=== PATIENT | male | born 1940 | race Caucasian/White ===

== ENCOUNTER 2020-04-22 13:38 | Emergency (ER) | payer MEDICARE, SELFPAY ==
--- NOTE | ~2020-04-22 | XR_ITS ---
EXAMINATION: XR finger 4th LT min 2V EXAM DATE: 04/22/2020 14:20 INDICATION: finger vs router, left 4th finger trauma. TECHNIQUE: Left 4th finger frontal, lateral and oblique projections obtained and reviewed. There i s no prior study for comparison. FINDINGS: Acute open posttraumatic comminuted fracture left 1st distal phalanx, with partial amputat ion. Multiple bone fragments. No metallic foreign bodies, but soft tissue is obscured by the soft tis makenna bandage. Large laceration. IMPRESSION: Open comminuted left 4th distal phalangeal fractures, laceration. Reviewed, dictated and finalized at location B. E[facility] [employer]
[2020-04-22 13:45] VITALS: BP 118/68; PULSE 73; RESP 20; TEMP 36.1; O2SAT 99
--- NOTE | 2020-04-22 14:25 | ED.UPPEXIN ---
HPI - Extremity Injury (Upper) General Chief Complaint: Extremity Injury, Upper Stated Complaint: finger amputation Time Seen by Provider: 04/22/20 14:13 Source: patient Mode of arrival: ambulatory Limitations: no limitations History of Present Illness HPI narrative: Patient is an 79-year-old male complaining of injuring his ring finger of his left hand, cut of the tip of my finger after getting caught in rowder . Denies any other pain or injury. Related Data Allergies Allergy/AdvReac Type Severity Reaction Status Date / Time No Known Allergies Allergy Verified 10/09/11 22:30 Review of Systems Review of Systems: All systems reviewed & are unremarkable except as noted in HPI and below Constitutional: Constitutional: Denies body ache(s), Denies chills, Denies excessive sweating, Denies fatigue, Denies fever(s), Denies headache(s), Denies lethargy, Denies malaise, Denies weakness and Denies weight loss Eyes: Eyes: Denies blurry vision, Denies change in vision and Denies loss of vision ENT: Denies dizziness, Denies ear discharge, Denies headache(s), Denies lip swelling, Denies epistaxis, Denies nasal congestion, Denies neck pain, Denies throat swelling and Denies tongue swelling Cardiovascular: Cardiovascular: Denies chest pain, Denies chest pain at rest, Denies chest pain with activity, Denies diaphoresis, Denies rapid heart rate, Denies edema, Denies irregular heart rhythm, Denies lightheadedness, Denies palpitations, Denies dyspnea and Denies dyspnea on exertion Respiratory: Respiratory: Denies chest congestion, Denies cough, Denies hemoptysis, Denies dyspnea and Denies dyspnea on exertion Gastrointestinal: Gastrointestinal: Denies abdominal pain, Denies melena, Denies hematochezia, Denies diarrhea, Denies nausea, Denies vomiting and Denies hematemesis Musculoskeletal: Musculoskeletal: Denies abnormal gait, Denies neck pain and Denies numbness Comments: Distal finger tip amputation 4th digit left hand, neurovasc intact Neurologic: Denies Abnormal speech present, Denies abnormal gait, Denies confusion, Denies dizziness, Denies headache(s), Denies focal weakness, Denies loss of vision, Denies numbness, Denies Other visual disturbances, Denies Sensory deficit (Neuro) and Denies weakness Psychiatric: Psychiatric: Denies confusion, Denies depression, Denies auditory hallucinations, Denies homicidal ideation and Denies suicidal ideation Endocrine: Endocrine: Denies cold intolerance, Denies excessive sweating, Denies fatigue, Denies heat intolerance and Denies palpitations Hematologic/Lymphatic: Hematologic/Lymphatic: Denies easy bleeding and Denies easy bruising Allergic/Immunologic: Allergic/Immunologic: Denies lip swelling, Denies throat swelling and Denies tongue swelling Course Vital Signs Vital signs: Vital Signs Temperature 36.1 C L 04/22/20 13:45 Pulse Rate 73 04/22/20 13:45 Respiratory Rate 20 04/22/20 13:45 Blood Pressure 118/68 04/22/20 13:45 Pulse Oximetry 99 04/22/20 13:45 Temperature 36.1 C L 04/22/20 13:45 Pulse Rate 73 04/22/20 13:45 Respiratory Rate 20 04/22/20 13:45 Blood Pressure 118/68 04/22/20 13:45 Pulse Oximetry 99 04/22/20 13:45 MDM - Extremity Injury (Upper) MDM Narrative Medical decision making narrative: Reviewed the x-ray of her finger, she has an open comminuted left distal distal phalanx fracture, fourth digit. Discussed the case with Dr. Cox, states that he will take the patient to the OR around 6 PM. Differential Diagnosis Differential diagnosis: Likely other (Fracture, dislocation, strain, sprain) Lab Data Result diagrams: 04/22/20 15:23 04/22/20 15:23 Labs: Lab Results 04/22/20 04/22/20 04/22/20 Range/Units 15:23 15:23 15:23 WBC 8.2 (4.5-10.0) K/mm3 RBC 5.04 (4.6-6.20) M/mm3 Hgb 16.0 (14.0-18.0) g/dL Hct 47.5 (42.0-52.0) % MCV 94.2 (80-100) fl MCH 31.7 (26-34) pg MCHC 33.7 (32-36) g
[2020-04-22 15:30] LABS: Basophils Percent Auto 0.4 % (0.2-1.2); Eosinophils Absolute Auto 0.1 K/mm3 (0-0.3); Eosinophils Percent Auto 1.1 % (0-4.4); Hematocrit 47.5 % (42.0-52.0); Immature Granulocyte Absolute 0.02 K/mm3 (0.00-0.031); Immature Granulocyte Percent A 0.2 % (0-0.5); Lymphocytes Absolute Auto 2.32 K/mm3 (0.9-3.2); Lymphocytes Percent Auto 28.2 % (18.3-44.2); Mean Corpuscular HGB Conc 33.7 g/dl (32-36); Mean Corpuscular Hemoglobin 31.7 pg (26-34); Mean Corpuscular Volume 94.2 fl (80-100); Mean Platelet Volume 11.5 fl (7.4-10.4); Monocytes Absolute Auto 0.8 K/mm3 (0.1-0.6); Monocytes Percent Auto 9.1 % (2.6-8.5); Platelet Count Result 160 k/mm3 (150-375); Red Blood Count 5.04 M/mm3 (4.6-6.20); Red Cell Distribution Width 13.3 % (11.5-14.5); White Blood Count 8.2 K/mm3 (4.5-10.0)
[2020-04-22 15:39] LABS: Prothrombin Time 13.3 Seconds (11.1-14.7)
[2020-04-22 15:40] LABS: Partial Thromboplastin Time 25.7 SECONDS (22.3-36.8)
[2020-04-22 15:41] LABS: Anion Gap 7 mmol/L (8-16); Blood Urea Nitrogen 29 mg/dL (9-20); Calcium 9.1 mg/dL (8.4-10.2); Carbon Dioxide 28 mmol/L (22-30); Chloride 104 mmol/L (98-107); Estimated CRCL calculation 48 ml/min; Estimated Glomerular Filt Rate > 60; Glucose 106 mg/dL (75-110); Potassium 4.1 mmol/L (3.4-5.0); Sodium 139 mmol/L (137-145)
[2020-04-22] MEDS: HYDROmorphone HCL INJ (*CRX) 1 MG/ML SYR 0.5 MG IV PUSH (16:19)
[2020-04-22] MEDS: TETANUS,DIPHTHERIA,AC PERTUSSIS ADULT (0.5 ML) BOOSTRIX IM (17:19)
--- NOTE | 2020-04-22 18:20 | PC.NURSE ---
dr rodriguez at bedside for digital block
--- NOTE | 2020-04-22 19:35 | PM.PROC ---
Procedure Note - Detailed Date of procedure: 04/22/20 Pre-op diagnosis: finger amputation Post-op diagnosis: same Procedure performed: Revision of amputation of the left ring finger in the distal phalanx Description of procedure: Mr. Koch is 79 he is here with his . About 2:00 a.m. in the afternoon he sustained a significant injury to the distal phalanx of his left ring finger while using a rubber . AD lives in [facility] and was transported here for treatment of this. He is waited in the ER for my attention. I have reviewed his x-rays which show preservation of the distal interphalangeal joint with about 7 mm of retained metaphysis. This gentleman's healthy, he has no allergies to medications, he takes a blood pressure medicine and cholesterol medicine i believe and nothing else. He was working at his home when this injury occurred. In the ER today he has received a Tdap and some IV Ancef and some Dilaudid. The digit was blocked with 1% lidocaine with epinephrine. It was meticulously cleaned with the sterile solution provided by the ER. A green tourniquet was placed at the base of the finger. The entire nail plate and nail bed were already gone except for part of the nail fold. The palmar flap was largely intact with some shredding to 1 side. bone fragments were removed from the wound and the metaphysis was shaped with a rongeur were to provide a satisfactory stump. The flexor and extensor tendons remained attached. The flap margins were trimmed appropriately and the palmar flap was brought to the dorsal skin and sutured. The flap was tailored as needed to provide a rounded and. All suturing was done with 4-0 nylon. The tourniquet was released and a sterile bandage applied. He is discharged home with a prescription for cephalexin and hydrocodone. Follow up will be on 04-28-20. Surgeon: Davey Cox MD
--- NOTE | 2020-04-22 19:50 | PC.NURSE ---
dr. rodriguez contacted ed requesting to see pt in office tomorrow. pt contacted per cell phone.
== END 2020-04-22 19:45 | disposition home or self-care (01) ==
PROVIDERS: Emergency Provider Emergency Medicine; PCP Internal Medicine
DX: S62.635B Displaced fracture of distal phalanx of left ring finger, initial encounter for open fracture (principal); Z23 Encounter for immunization; W31.2XXA Contact with powered woodworking and forming machines, initial encounter
CPT/HCPCS: 13131; 36415; 73140; 80048; 85025; 85610; 85730; 90471; 90715; 96365; 96375; 99284; J0690; J1170

== ENCOUNTER 2023-12-25 14:43 | Emergency (ER) | payer MEDICARE, SELFPAY ==
--- NOTE | ~2023-12-25 | XR_ITS ---
XR chest 2V Ordering provider: Nathan Montano MD History: 83 years Male with . weakness . Comparison: None. FINDINGS: MEDIASTINUM: The cardiac silhouette is slightly enlarged. LUNGS: No pneumothorax. Minimal opacification the left lung base is seen which may indicate atelectas is. Minimal effusion is not excluded. OTHER: No free air under the diaphragm. Degenerative changes of the spine. IMPRESSION: Minimal opacification the left lung base suggestive of atelectasis. Minimal effusion is not excluded. Clinical correlation and follow-up advised. Reviewed, dictated and finalized at location A. IMPRESSION: Minimal opacification the left lung base suggestive of atelectasis. Minimal eff usion is not excluded. Clinical correlation and follow-up advised.
[2023-12-25 14:49] VITALS: BP 116/93; PULSE 91; RESP 24; TEMP 36.5; O2SAT 97
--- NOTE | 2023-12-25 14:55 | ECG_ITS ---
Test Date: 2023-12-25 15:00:25 Measurements Intervals [place] Rate: 93 P: 1 IN: 184 QRS: -61 QRSD: 104 T: 55 QT: 338 QTc: 422 Interpretive Statements SINUS RHYTHM LEFT ANTERIOR FASCICULAR BLOCK BASELINE ARTIFACT- I, II, III, AVR, AVL, AVF, V1-V2 ABNORMAL ECG No previous ECG available for comparison Electronically Signed On 12-25-2023 15:27:12 CDT by Arnie Brown D.O.
[2023-12-25 15:16] LABS: Basophils Percent Auto 0.3 % (0.2-1.2); Eosinophils Percent Auto 0.2 % (0-4.4); Hematocrit 47.9 % (42.0-52.0); Immature Granulocyte Absolute 0.03 K/mm3 (0.00-0.031); Immature Granulocyte Percent A 0.3 % (0-0.5); Lymphocytes Absolute Auto 2.67 K/mm3 (0.9-3.2); Lymphocytes Percent Auto 22.7 % (18.3-44.2); Mean Corpuscular HGB Conc 33.4 g/dl (32-36); Mean Corpuscular Hemoglobin 32.2 pg (26-34); Mean Corpuscular Volume 96.4 fl (80-100); Mean Platelet Volume 11.8 fl (7.4-10.4); Monocytes Absolute Auto 1.3 K/mm3 (0.1-0.6); Monocytes Percent Auto 11.4 % (2.6-8.5); Neutrophils Absolute Auto 7.7 K/mm3 (1.3-6.7); Neutrophils Percent Auto 65.1 % (45.5-73.1); Platelet Count Result 147 k/mm3 (150-375); Red Blood Count 4.97 M/mm3 (4.6-6.20); Red Cell Distribution Width 13.2 % (11.5-14.5); White Blood Count 11.8 K/mm3 (4.5-10.0)
[2023-12-25 15:24] LABS: Alanine Aminotransferase 38 U/L (6-50); Albumin Level 4.3 g/dL (3.5-5.1); Alkaline Phosphatase 75 U/L (38-126); Anion Gap 13 mmol/L (4-12); Aspartate Amino Transferase 42 U/L (17-59); Blood Urea Nitrogen 34 mg/dL (9-20); Calcium 9.6 mg/dL (8.4-10.2); Carbon Dioxide 25 mmol/L (22-30); Chloride 100 mmol/L (98-107); Estimated CRCL calculation 38 ml/min; Estimated Glomerular Filt Rate 48; Glucose 144 mg/dL (65-110); Potassium 4.1 mmol/L (3.4-5.0); Sodium 138 mmol/L (137-145)
[2023-12-25 16:08] LABS: Add Urine Microscopic? YES; Appearance Urine Turbid (Clear); Bacteria Urine 1+ /hpf; Bilirubin Urine Negative (Negative); Blood Urine 2+ (Negative); Color Urine Yellow (Yellow); Glucose Urine UA Negative (Negative); Ketones Urine Trace mg/dL (Negative); Leukocyte Esterase Ur 3+ LEU/UL (Negative); Nitrate Urine Positive (Negative); Non Pathogenic Casts 0-2; Protein Urine 1+ mg/dL (Negative); Specific Grav Ur 1.016 (1.001-1.035); Squamous Epithelial Cell Urine None Seen /hpf (Few); Urobilinogen Urine 0.2 mg/dL (<2.0); WBC Urine >100 /hpf (0-3); pH Urine 5.5 (5.0-9.0)
--- NOTE | 2023-12-25 16:12 | ED.WEAKNESS ---
HPI - Weakness General Chief complaint: Weakness Stated complaint: weakness, r/o sepsis and kidney infection Time Seen by Provider: 12/25/23 15:24 History of Present Illness HPI Narrative: 83-year-old male presenting with concerns for UTI. Patient's is at bedside and helps with the history. States that he has been increasingly weak and urinating on himself which is not normal. They went to urgent care and they were told he has a UTI. He then had several episodes of emesis so they were told to come to the ER. He denies abdominal pain. Denies current nausea. States that he would like to drink something. States that he did have a fever earlier today. His states that he has a history of UTIs and this is how he always acts when he has 1. Related Data Allergies Allergy/AdvReac Type Severity Reaction Status Date / Time No Known Allergies Allergy Verified 10/09/11 22:30 Review of Systems Review of Systems: All systems reviewed & are unremarkable except as noted in HPI and below PMFSH Past Medical History Medical History Fracture of distal phalanx of finger, open Exam Narrative: GENERAL: Nontoxic, no acute distress, pleasant cooperative HEAD: Normocephalic, atraumatic. EYES: PERRLA and EOMI. ENT: Mucous membranes tacky NECK: Supple. CHEST: Clear to auscultation. No respiratory distress. HEART: Regular rate and rhythm ABDOMEN: Soft, nontender, nondistended EXTREMITIES: Normal range of motion. SKIN: Warm, dry, no rash. NEURO: Alert and oriented x3. PSYCH: Normal mood and affect. Course Vital Signs Vital signs: Vital Signs Temperature 97.7 F 12/25/23 14:49 Pulse Rate 91 12/25/23 14:49 Respiratory Rate 24 H 12/25/23 14:49 Blood Pressure 116/93 H 12/25/23 14:49 Pulse Oximetry 97 12/25/23 14:49 Oxygen Delivery Room Air 12/25/23 14:49 Temperature 98.1 F 12/25/23 19:04 Pulse Rate 88 12/25/23 19:04 Respiratory Rate 30 H 12/25/23 19:04 Blood Pressure 131/78 12/25/23 19:04 Pulse Oximetry 95 12/25/23 19:04 Oxygen Delivery Room Air 12/25/23 14:49 MDM - Weakness MDM Narrative Medical decision making narrative: 83-year-old male presenting with urinary frequency and generalized weakness. Vitals are within normal limits. Exam remarkable for the above. Blood work with mild leukocytosis. Creatinine today is 1.4, last creatinine we had was from 3 years ago and was 1.1. Not a significant change in renal function. Chest x-ray without acute abnormalities. UA is concerning for UTI. Patient received IV fluids and antibiotics. He continues to feel well and he overall looks very good. His vital signs remained within normal limits. Feel he is safe for outpatient management with p.o. antibiotics. Advised close PCP follow-up. Appropriate return precautions given. Patient and his were agreeable with this plan. Discharged in stable condition. Differential Diagnosis Differential diagnosis: Likely dehydration and other (UTI, NEELA, altered mental status, weakness) Medical Records Attestation: I reviewed the patient's medical records. Lab Data Attestation: I reviewed the patient's lab results. 12/25/23 15:08 12/25/23 15:08 Labs: Lab Results 12/25/23 12/25/23 Range/Units 15:08 16:00 WBC 11.8 H (4.5-10.0) K/mm3 RBC 4.97 (4.6-6.20) M/mm3 Hgb 16.0 (14.0-18.0) g/dL Hct 47.9 (42.0-52.0) % MCV 96.4 (80-100) fl MCH 32.2 (26-34) pg MCHC 33.4 (32-36) g/dl RDW 13.2 (11.5-14.5) % Plt Count 147 L (150-375) k/mm3 MPV 11.8 H (7.4-10.4) fl Immature Gran % (Auto) 0.3 (0-0.5) % Neut % (Auto) 65.1 (45.5-73.1) % Lymph % (Auto) 22.7 (18.3-44.2) % [place] % (Auto) 11.4 H (2.6-8.5) % Eos % (Auto) 0.2 (0-4.4) % Baso % (Auto) 0.3 (0.2-1.2) % Lymph # (Auto) 2.67 (0.9-3.2) K/mm3 [place] # (Auto) 1.3 H (0.1-0.6) K/mm3 Eos # (Auto)
[2023-12-25] MEDS: SODIUM CHLORIDE 0.9% IV 1,000 ML 999 ML IV CONT (16:32)
[2023-12-25] MEDS: cefTRIAXone 2 GM/NS 100 ML 2 GM/100 ML BAG IVPB (16:32)
[2023-12-25 16:34] VITALS: BP 132/68; PULSE 88; RESP 19; O2SAT 94
[2023-12-25 19:04] VITALS: BP 131/78; PULSE 88; RESP 30; TEMP 36.7; O2SAT 95
== END 2023-12-25 19:05 | disposition home or self-care (01) ==
PROVIDERS: Emergency Medicine; Emergency Provider Emergency Medicine
DX: N39.0 Urinary tract infection, site not specified (principal); R94.31 Abnormal electrocardiogram [ECG] [EKG]
CPT/HCPCS: 36415; 71046; 80053; 81001; 85025; 87077; 87086; 87088; 87186; 93005; 96365; 99284; J0696; J7030